=== PATIENT | female | born 1965 | race Caucasian/White ===

== ENCOUNTER 2024-10-22 13:38 | Inpatient (IN) | payer MEDICARE, OTHER, SELFPAY ==
[2024-10-21 20:04] VITALS: BP 188/126
[2024-10-21 20:45] LABS: % Basophils 0.2 % (0-2); % Immature Granulocytes 0.4 % (0-0.5); % Lymphocytes 5.4 % (20.5-51.1); % Monocytes 3.8 % (1.7-9.3); % Neutrophils 90.2 % (42.2-75.2); Absolute Immature Granulocytes 0.1 10^3/uL (0-0.05); Absolute Lymphocytes 0.8 10^3/uL (1.2-3.4); Absolute Monocytes 0.6 10^3/uL (0.1-0.6); Absolute Neutrophils 14.2 10^3/uL (1.4-6.5); Hematocrit 49.8 % (37.0-47.0); Hemoglobin 17.5 g/dL (12.0-16.0); Mean Corp Hgb Conc. 35.1 g/dL (33.0-37.0); Mean Corpuscular Volume 88.1 fL (81.0-99.0); Mean Platelet Volume 8.8 fL (7.4-10.4); Nucleated Red Blood Cells % 0 %; Platelet Count 404 10^3/uL (130-400); Red Blood Cell Count 5.65 10^6/uL (4.20-5.40); Red Cell Dist. Width 14.4 % (11.5-14.5); White Blood Cell Count 15.7 10^3/uL (4.8-10.8)
[2024-10-21 21:00] VITALS: BP 193/124
[2024-10-21 21:03] LABS: ALT (SGPT) 38 U/L (0-35); AST (SGOT) 37 U/L (14-36); Albumin 5.3 g/dl (3.5-5.0); Alkaline Phosphatase 123 U/L (38-126); Blood Urea Nitrogen 38 mg/dl (7-17); Calcium 10.8 mg/dl (8.4-10.2); Carbon Dioxide 19 mmol/L (22-30); Chloride 96 mmol/L (98-107); Glucose 187 mg/dl (70-99); Lipase 61 U/L (23-300); Potassium 3.9 mmol/L (3.5-5.1); Sodium 137 mmol/L (135-145); Total Bilirubin 0.5 mg/dl (0.2-1.3); Total Protein 8.3 g/dl (6.3-8.2); eGFR 31.86
--- NOTE | 2024-10-21 21:09 | ED.GENMED ---
History of Present Illness
General
Chief Complaint: Abdominal Symptoms
Source: patient
Time Seen by Provider: 10/21/24 20:40
History of Present Illness
History of Present Illness:
59-year-old female presents to the emergency room complaining of nausea, vomiting, diarrhea. Symptoms became significant over the past 48 hours. She did have some nausea vomit began about 6 days ago however it was intermittent. No significant
abdominal pain. Patient had a cholecystectomy about a year ago. She denies any dysuria or frequency.
Past History
Past History
ED Past Medical History: HTN; Negative IDDM
ED Past Surgical History: Negative Cardiac
Patient has exhibited threatening behavior?: No
PSI?: No
Social History
Tobacco: Smoker
Alcohol: Occasional
Drug: None
Personal:
Living: with family
Employment: Employed
Family History
Family History: Hypertension
Phy Exam
Physical Exam
Physical Exam:
General: Awake, Alert, Oriented X3. No acute distress.
Vitals: unremarkable
Head: Atraumatic
Eyes: Pupils equal, EOMI
Throat: Airway intact, no exudates, dry mucosa
Neck: Trachea midline
Lungs: Clear and equal b/l
Heart: Regular rate, no murmurs
Abd: Soft, Nontender, No pulsatile mass
Neuro: Nonfocal
Skin: Warm, dry, no rash
Extremities: pulses equal b/l, no edema
Course
Orders/Labs/Results
Orders:
Orders
10/21/24 20:03
Electrocardiogram (*1) Urgent
Reason for Study: Chest Pain
EKG- Treatment ONCE
10/21/24 20:36
Comprehensive Metabolic Panel Urgent
Lipase Urgent
10/21/24 20:37
Complete Blood Count/With Diff Urgent
10/21/24 21:03
0.9% Sodium Chloride 1000 ml [Nss] 1,000 ml IV BOLUS
Ondansetron Injectable [Zofran] 4 mg IV NOW STA
10/21/24 21:07
Hydrocodone 7.5/APAP 325 [[place] 7.5/325] 1 tablet PO NOW STA
10/21/24 23:15
HYDROmorphone [Dilaudid] 1 mg IV NOW STA
10/21/24 23:25
Ondansetron Injectable [Zofran] 4 mg .ROUTE .STK-MED ONE
10/21/24 23:29
Ondansetron Injectable [Zofran] 4 mg IV NOW STA
10/22/24 02:11
Metoclopramide [Reglan] 10 mg IV NOW STA
Abnormal Lab Results
10/21/24 10/21/24
20:36 20:37
WBC 15.7 H 10^3/uL
(4.8-10.8)
RBC 5.65 H 10^6/uL
(4.20-5.40)
Hgb 17.5 H g/dL
(12.0-16.0)
Hct 49.8 H %
(37.0-47.0)
Plt Count 404 H 10^3/uL
(130-400)
Abs Immat Gran (auto) 0.1 H 10^3/uL
(0-0.05)
Absolute Neuts (auto) 14.2 H 10^3/uL
(1.4-6.5)
Absolute Lymphs (auto) 0.8 L 10^3/uL
(1.2-3.4)
Neutrophils % 90.2 H %
(42.2-75.2)
Lymphocytes % 5.4 L %
(20.5-51.1)
Chloride 96 L mmol/L
(98-107)
Carbon Dioxide 19 L mmol/L
(22-30)
BUN 38 H mg/dl
(7-17)
Creatinine 1.8 H mg/dL
(0.6-1.0)
Glucose 187 H mg/dl
(70-99)
Calcium 10.8 H mg/dl
(8.4-10.2)
AST 37 H U/L
(14-36)
ALT 38 H U/L
(0-35)
Total Protein 8.3 H g/dl
(6.3-8.2)
Albumin 5.3 H g/dl
(3.5-5.0)
10/21/24 20:37
10/21/24 20:36
Vital Signs
Initial and Last Documented VS:
Initial Vital Signs
Temp Pulse Resp BP Pulse Ox
97.6 F 130 22 188/126 97
10/21/24 20:04 10/21/24 20:04 10/21/24 20:04 10/21/24 20:04 10/21/24 20:04
Last Documented Vital Signs
Temp Pulse Resp BP Pulse Ox
97.6 F 106 22 120/84 95
10/21/24 20:04 10/22/24 01:30 10/22/24 01:30 10/22/24 01:01 10/22/24 01:30
MDM/Problems Addressed
Differential Diagnosis Includes:
Gastroenteritis, norovirus, opiate withdrawal
MDM/Problems Addressed:
Patient presents with acute nausea vomiting and diarrhea. Patient does use opiates for chronic pain related to her right leg amputation. Patient's been unable to keep these medications down for the past couple days. Patient has not had a fever.
Labs show mild elevation of her white blood cell count which is nonspecific. Hemoglobin is high consistent with volume contraction. Chemistries show elevation of her creatinine above baseline which is 1.4 in 2022. This may also be a chronic
jacket changer time. Patient received a liter of IV fluid. 2 doses Zofran and a dose of IV Dilaudid. Patient had significant improvement in her vital signs remained hypertensive and tachycardic to essentially normal. Patient initially feeling much
better however her nausea vomiting returned. She had further diarrhea. Patient not able to be discharged home. Talk to the hospitalist about admission for hydration and symptom management
*Pulse Oximetry
Patient hypoxic: no
*EKG
Interpretation: abnormal
Heart Rate: 125
Rate: tachycardiac
Rhythm: sinus tachycardia
[place]: normal axis
Interval: normal interval
QRS Pattern: normal QRS
Ischemia: non-specific ST changes
*Finisher Denture Interpretation
Rate: tachycardiac
Interpretation: abnormal
Heart Rate: 125
Rhythm: sinus tachycardia
*Critical Care Note
Total Time (30-74mins, 75-104mins- exclusive of procedures): Not Applicable
Patient Management
Social determinants of health affecting care: Living situation
ED Attending Note
-
Portions of this chart may have been created with voice recognition software.� Occasional wrong word or��sound alike� substitutions may have occurred due to the inherent limitations of voice recognition software.
Discharge Plan
Departure
Patient Disposition: Admit
Date of Disposition: 10/22/24
Time of Disposition: 01:40
Presentation/result/management discussed w/ accepting MD/DO: Hospitalist
Patient with high blood pressure during this ER visit?: No
Condition: Fair
Discharge Problem:
Nausea & vomiting, Opiate withdrawal
Instructions: Nausea and Vomiting, Adult (DC)
Prescriptions:
New
ondansetron 4 mg tablet,disintegrating
4 mg PO Q8H PRN (Reason: nausea and vomiting) Qty: 10 0RF
No Action
lisinopril 10 MG tablet
0.5 tab PO DAILY
hydrochlorothiazide 12.5 MG capsule
0.5 tab PO DAILY
lorazepam 1 MG tablet
1 mg PO HS
ibuprofen 600 MG tablet
600 mg PO Q6H Qty: 30 0RF
Referrals:
Tanner Castillo MD [Family Provider] -
Activity Restrictions/Additional Instructions:
I believe he developed nausea vomiting due to a GI bug which has been prevalent in the area. Because of your nausea and vomiting you are unable to get your pain medicine into your system which then made you more sick. I believe we controlled the
situation now with IV nausea medicine and a dose of IV pain medicine. Your vital signs have normalized and I believe you should be okay to tolerate oral liquids and your pain medication moving forward. Return to the emergency room for any concerns
or inability to tolerate oral intake.
Interventions
Interventions:
*Risk Screen - Suicide Last Done: 10/21/24 20:04
*General Assessment Last Done: 10/21/24 20:33
*Neglect/Abuse Screening Last Done: 10/21/24 20:04
*ED COVID-19 Vaccine History Last Done: 10/21/24 20:33
WL-Zboxlw-Yahdwcdgqg Assessment Last Done: 10/21/24 20:33
Discharge Date and Time
Print Language: TAMAZIGHT
[2024-10-21] MEDS: ZOFRAN 4 MG IV ×2 (21:25→23:29)
[2024-10-21] MEDS: NSS 1000 IV (21:25)
[2024-10-21 22:00] VITALS: BP 181/88
[2024-10-21] MEDS: NORCO 7.5/325 1 TABLET PO (22:05)
[2024-10-21 23:02] VITALS: BP 177/137
[2024-10-21] MEDS: DILAUDID 1 MG IV (23:28)
[2024-10-22] VITALS (8 sets, daily range): BP systolic 104–197; BP diastolic 67–96; BMI 23.7; BMI 21.6
[2024-10-22] MEDS: REGLAN 10 MG IV (02:19)
[2024-10-22] MEDS: NSS 1000 IV (03:23)
--- NOTE | 2024-10-22 03:52 | HPS.HSE ---
Family Physician
-
Family Physician: Tanner Castillo MD
Chief Complaint
-
Nausea vomiting and diarrhea
History of Present Illness
This is a 59-year-old female was a past medical history significant for hypertension, right BKA presenting to the emergency department with 1 day of intractable nausea vomiting and diarrhea.
Patient apparently had symptoms about 1 week ago. It resolved. Then again 1 day ago she started having abdominal discomfort and vomiting followed by profuse diarrhea. Patient reported being on the commode 25 times in the last 24 hours due to
vomiting and diarrhea. She denied having any hematochezia. She denied having any melena. She has mostly watery diarrhea. She is unable to tolerate p.o. due to the symptoms. She would vomited attempted oral medications in the emergency
department. Patient reported that she did take her diltiazem in the morning yesterday. She reported that she has not taking Vicodin in the last 24 hours.
In the ED she was tachycardic to the 110s to 120s, blood pressure was elevated to as high as 200 systolic. She was afebrile. She had a white count of 15,000 and hemoglobin of 17.5. Blood count was normal. Creatinine was 1.8 and a BUN of 38.
Electrolytes were mostly unremarkable. LFTs AST and ALT of 37 both. Otherwise unremarkable. Lipase normal.
Medical History
Past Medical History
Past Medical History: Reports Cancer (breast ca) and HTN
Past Surgical History: Reports Orthopedic (Right BKA) and Other (Left mastectomy)
Social History
Tobacco: Smoker
Alcohol: None
Drug: None
Personal: Single
Living: With Family
Family History
Family History: Not pertinent
Allergies / Home Medications
Allergies reflects when Allergies were last updated in [facility].
Home Medications with original date entered in [facility]
Allergy/Medication List:
Allergies
Allergy/AdvReac Type Severity Reaction Status Date / Time
Penicillins Allergy Unknown Verified 10/21/24 20:03
Home Medications
Vicodin 10/22/24
aspirin 81 mg tablet,delayed release 81 mg PO DAILY 10/22/24
diltiazem HCl 240 mg capsule,extended release 24 hr 240 mg PO DAILY 10/22/24
gabapentin 600 mg tablet 600 mg PO BID 10/22/24
hydrochlorothiazide 25 mg tablet 25 mg PO DAILY 10/22/24
lansoprazole 10/22/24
ondansetron 4 mg disintegrating tablet 4 mg PO Q8H PRN nausea and vomiting #10 tabs 10/22/24
spironolactone 10/22/24
venlafaxine 150 mg tablet,extended release 24 hr 150 mg PO HS 10/22/24
Review of Systems
-
History Source: Patient
Constitutional: Reports No Symptoms
EENT: Reports No Symptoms
Respiratory: Reports No Symptoms
Cardiac: Reports No Symptoms
Abdomen/GI: Reports Abdominal Pain, Nausea, Vomiting and Diarrhea
: Reports No Symptoms
Musculoskeletal: Reports No Symptoms
Skin: Reports No Symptoms
Neurological: Reports No Symptoms
Endocrine: Reports No Symptoms
Hematologic/Lymphatic: Reports No Symptoms
Psych: Reports No Symptoms
Physical Exam
Vital Signs
Vital Signs
Temp Pulse Resp BP Pulse Ox
97.6 F 100 17 120/84 95
10/21/24 20:04 10/22/24 03:01 10/22/24 03:01 10/22/24 01:01 10/22/24 01:30
Physical Exam
General: Well Developed and Well Nourished
HEENT: NormoCephalic, Anicteric and Moist mucous membranes
Respiratory: Clear
Cardiac: S1/S2 and Tachycardia
Breast: Deferred by me
GI: Soft, Non Tender, Non Distended and Normal Bowel Sounds
Rectal: Deferred by Provider
Genito-urinary: Deferred by me
Musculoskeletal: No Clubbing, No Cyanosis and No Edema
Skin: Warm
Neuro: AO x 3 and Nonfocal/grossly intact
Hematologic/Lymphatic: No Lymphadenopathy
Psych: Calm
Laboratory Results
-
10/21/24 20:37
10/21/24 20:36
Laboratory Results
Total Bilirubin 0.5 mg/dl (0.2-1.3) 10/21/24 20:36
AST 37 U/L (14-36) H 10/21/24 20:36
ALT 38 U/L (0-35) H 10/21/24 20:36
Alkaline Phosphatase 123 U/L (38-126) 10/21/24 20:36
Lipase 61 U/L (23-300) 10/21/24 20:36
Data Reviewed
-
Medical Tests (Nuc Med, Echo, EKG etc): Image Personally Visualized and interpreted
Lab Data: Labs Reviewed by me
Old Records: Reviewed
Impression/Plan
-
IMPRESSION:
Patient with approximately 1 day of profuse nausea vomiting and diarrhea, she is tachycardic with sinus tachycardia to 125 on ECG. Labs notable for hemoglobin of 17 concerning for hemoconcentration. Creatinine is up to 1.8 from a baseline of
around 1.1. LFTs unremarkable. Lipase is normal. Abdominal exam is benign. Suspect acute gastroenteritis likely from rotavirus or norovirus. No recent antibiotic use. This picture is likely complicated by some degree of opioid withdrawal.
Patient takes Vicodin 40 mg total in a day and has not had that over 24 hours. She has no prior history of opioid withdrawal and denies any recreational use.
PLAN:
1. Acute gastroenteritis with dehydration
- admit to telemetry
- continue with IV LR at 125 ml/hr for now
- antiemetics
- ppi iv, famotidine
- stool wbc and norovirus
- start immodium prn
- pain control
2. Opioid withdrawal - Mild withdrawal
- bupronorphine 2mg sl x 1
- start prn hydrocodone
- monitor on tele.
3. HTN - suspect 2/2 some withdrawal
- clonidine 0.1 now
- continue diltiazem 240 daily, hold hctz, hold spironolactone
- prn hydralazine
4. ONEYDA - suspect pre renal given history
- holding hctz and spironolactone
- IV fluids
DVT PPX - heparin sq
Code status - full code
[2024-10-22] MEDS: FLUSH (NSS) 1 FLUSH IV (04:26)
[2024-10-22] MEDS: PROTONIX IV 40 MG IV ×2 (04:26→09:18)
[2024-10-22] MEDS: NSS (PRESERVATIVE FREE) 10 ML IV ×2 (04:26→09:19)
[2024-10-22] MEDS: SUBUTEX 2 MG SL (05:01)
[2024-10-22] MEDS: CATAPRES 0.1 MG PO (05:57)
--- NOTE | 2024-10-22 07:25 | W.PN.HOSP.TC ---
Addendum entered and electronically signed by Kandice Moss MD 10/22/24 17:38:
I saw and evaluated the patient independently. I reviewed the resident�s note and agree with findings and plan as documented by Dr. Salvador.
GENERAL: well developed, well nourished, female in no apparent distress
HEENT: NC/AT--no O2 requirements
HEART: regular rate and rhythm, +S1, +S2
LUNGS : clear to auscultation bilaterally
ABDOM: soft, tender RLQ without guarding or rebound, nondistended, hyperactive bowel sounds
EXT: no cyanosis, clubbing, or edema--right BKA
NEUROLOGIC: grossly intact
N/V/diarrhea -- suspect viral gastroenteritis--C. diff neg--norovirus pending--stool studies pending--pt denies any tainted or funny tasting foods--lives alone--no ill contacts--cont IVF, Zofran--clears, advance diet as tolerated--PPI--pain meds
Possible chronic kidney disease versus acute kidney injury with metabolic acidosis--due to dehydration and bicarbonate losses from stool output--cont IVF--agree with holding HCTZ/Aldactone--creat 1.8 to 1.2
Essential Hypertension--cont clonidine, diltiazem as able--hold HCTZ/Aldactone
chronic pain from BKA with opiate use--cont Percocet as able--IV Dilaudid if unable to take orals
DVT proph
code status--FULL CODE
Original Note:
Today's Communication/Plan
-
Patient appears to be improving with IV fluid support and current treatment. We will continue current treatment and monitor the patient. Continue to manage pain. As needed hydralazine for breakthrough hypertension. Continue to trend creatinine
and eGFR.
Assessment / Plan
Assessment / Plan
HPI: Patient is a 59-year-old female with a past medical history of hypertension, right below the knee amputation who presented to the emergency department with 1 day of intractable vomiting and nausea with diarrhea. The patient stated that
symptoms started about 1 week prior to her presentation. It resolved on its own at that time. Then again 1 day prior to her presentation she started having abdominal discomfort again with vomiting and diarrhea. The patient reported being on the
commode 25 times in the last 24 hours due to vomiting and diarrhea. She denied having any hematochezia or any melena. She stated she was mostly having watery diarrhea. She was unable to tolerate any oral intake due to the symptoms. Any oral
medications given to her in the emergency department were vomited. The patient reported that she did take her diltiazem prior to her presentation to the emergency department. In the emergency department she was tachycardic with a heart rate to the
110s to 120s, blood pressure was elevated to as high as 200 systolic. She was afebrile. She had a white blood cell count of 15,000 and hemoglobin of 17.5. Blood count was normal. BUN was 38 and creatinine was 1.8. AST and ALT were both 37 and
lipase was normal. The patient was admitted to [facility] for acute gastroenteritis with dehydration.
Assessment/Plan:
-Acute gastritis with dehydration:
IV fluid support given
Continue antiemetic Zofran
PPI support with pantoprazole IV
Obtain stool cultures
Imodium as needed
Pain control with Dilaudid
-Possible chronic kidney disease versus acute kidney injury:
Patient's EGFR was 31.86 on 08/20/2025 and was 51.82 on 10/22/2024. We will continue to trend EGFR
Patient's creatinine on 03/27/2023 was 1.1, on 10/21/2024 it was 1.8, on 10/22/2024 it was 1.2�we will continue to trend creatinine
Holding hydrochlorothiazide and spironolactone
IV fluid support
-Hypertension:
The patient was given 0.1 of clonidine
Continuing diltiazem, holding hydrochlorothiazide and spironolactone
As needed hydralazine for breakthrough hypertension
Anticipated Discharge: 24 - 48 hours
Subjective/Interval History
-
Met with patient at the bedside. Her stomach continues to be upset but her pain had significantly improved. She wanted to attempt eating more food and decided that she would like to try to stick to clears but then at her own pace try small solid
foods. Her diet has been advanced with this understanding.
Objective Data
-
Labs:
Labs
10/22/24 12:52
10/22/24 12:52
Vital Signs:
Vital Signs
Temp Pulse Resp BP Pulse Ox
97.6 F 119 30 197/96 95
10/21/24 20:04 10/22/24 04:30 10/22/24 04:30 10/22/24 04:29 10/22/24 01:30
Review of Systems
-
History Source: Patient
Constitutional: Reports No Symptoms
EENT: Reports No Symptoms Reported
Respiratory: Reports No Symptoms
Cardiac: Reports No Symptoms
Abdomen/GI: Reports Abdominal Pain, Nausea and Vomiting
Breast: Reports No Symptoms
Genitourinary: Reports No Symptoms
Musculoskeletal: Reports No Symptoms
Skin: Reports No Symptoms
Neuro: Reports Weakness
Endocrine: Reports No Symptoms
Hematologic / Lymphatic: Reports No Symptoms
Allergy / Immunology: Reports No Symptoms
Physical Exam
-
General: Well Developed, Well Nourished and Pain
HEENT: Normocephalic, Atraumatic and Moist Mucous Membranes
Respiratory: Clear to Auscultation
Cardiac: Regular Rhythm and S1/S2; Negative JVD
Breast: Deferred by me
GI: Nondistended, Normal Bowel Sounds and Tender
Genito-urinary: Deferred by me
Musculoskeletal: Other (Below the knee amputation of the right side)
Skin: Warm and Dry
Neuro: Awake, Alert and Oriented
Psych: Calm and Intact Judgement/Insight
[2024-10-22] MEDS: ZOFRAN 4 MG IV ×3 (08:14→21:38)
[2024-10-22] MEDS: LR 1000 IV ×3 (09:14→23:56)
[2024-10-22] MEDS: HEPARIN 5000 UNITS SC ×3 (09:18→23:59)
[2024-10-22] MEDS: ASPIR LOW (ENTERIC COATED) 81 MG PO (09:18)
[2024-10-22] MEDS: CARDIZEM CD 240 MG PO (09:19)
[2024-10-22] MEDS: NEURONTIN 600 MG PO ×2 (09:19→21:50)
[2024-10-22] MEDS: DILAUDID 0.5 MG IV ×3 (10:52→21:32)
[2024-10-22 13:17] LABS: Blood Urea Nitrogen 28 mg/dl (7-17); Calcium 9.3 mg/dl (8.4-10.2); Carbon Dioxide 30 mmol/L (22-30); Chloride 98 mmol/L (98-107); Estimated Creatinine Clearance 36 ml/min; Glucose 101 mg/dl (70-99); Potassium 4.2 mmol/L (3.5-5.1); Sodium 136 mmol/L (135-145); eGFR 51.82
[2024-10-22 13:22] LABS: Hematocrit 40.5 % (37.0-47.0); Hemoglobin 13.8 g/dL (12.0-16.0); Mean Corp Hgb Conc. 34.1 g/dL (33.0-37.0); Mean Corpuscular Hgb 31.2 pg (27.0-31.0); Mean Corpuscular Volume 91.4 fL (81.0-99.0); Mean Platelet Volume 8.9 fL (7.4-10.4); Platelet Count 269 10^3/uL (130-400); Red Blood Cell Count 4.43 10^6/uL (4.20-5.40); Red Cell Dist. Width 14.5 % (11.5-14.5); White Blood Cell Count 9.5 10^3/uL (4.8-10.8)
--- NOTE | 2024-10-22 15:15 | PTCARENOTE ---
Received pt from ED via stretcher. Pt ambulated to bed with standby assist and RW. AAOx3. Pt c/o 04/17 pain throughout right stump, see MAR. Assessed and oriented to room. Pt verbalized understanding of call estes. Misha estes within close reach. Will
cont to monitor.
[2024-10-22] MEDS: LR IV (16:57)
--- NOTE | 2024-10-22 18:09 | PTCARENOTE ---
Pt c/o unrelieved nausea. MD made aware, no new order provided.
--- NOTE | 2024-10-22 18:40 | PTCARENOTE ---
Pt c/o acid reflux, made aware, new order provided, see MAR.
[2024-10-22] MEDS: PEPCID 20 MG PO (18:42)
[2024-10-22] MEDS: FLUSH (NSS) 3 FLUSH IV (21:39)
[2024-10-22] MEDS: EFFEXOR XR 150 MG PO (21:50)
[2024-10-22] MEDS: DESYREL 150 MG PO (23:57)
[2024-10-23 03:42] VITALS: BP 157/96
[2024-10-23 07:00] VITALS: BP 121/68
[2024-10-23] MEDS: LR 1000 IV (07:13)
[2024-10-23 08:30] LABS: Hematocrit 37.2 % (37.0-47.0); Hemoglobin 12.5 g/dL (12.0-16.0); Mean Corp Hgb Conc. 33.6 g/dL (33.0-37.0); Mean Corpuscular Hgb 31.1 pg (27.0-31.0); Mean Corpuscular Volume 92.5 fL (81.0-99.0); Mean Platelet Volume 9.2 fL (7.4-10.4); Platelet Count 265 10^3/uL (130-400); Red Blood Cell Count 4.02 10^6/uL (4.20-5.40); Red Cell Dist. Width 14.3 % (11.5-14.5)
[2024-10-23] MEDS: ASPIR LOW (ENTERIC COATED) 81 MG PO (08:46)
[2024-10-23] MEDS: NEURONTIN 600 MG PO ×2 (08:46→21:12)
[2024-10-23] MEDS: HEPARIN 5000 UNITS SC ×2 (08:46→16:24)
[2024-10-23] MEDS: VITAMIN B-12 1000 MCG PO (08:46)
[2024-10-23] MEDS: CARDIZEM CD 240 MG PO (08:46)
[2024-10-23] MEDS: NSS (PRESERVATIVE FREE) 10 ML IV (08:46)
[2024-10-23] MEDS: PROTONIX IV 40 MG IV (08:46)
[2024-10-23] MEDS: VITAMIN D3 (cholecalciferol) 25 MCG PO (08:46)
[2024-10-23] MEDS: DILAUDID 0.5 MG IV ×4 (08:52→22:26)
[2024-10-23] MEDS: ZOFRAN 4 MG IV ×3 (08:52→22:26)
[2024-10-23 09:05] LABS: ALT (SGPT) 29 U/L (0-35); AST (SGOT) 27 U/L (14-36); Albumin 3.2 g/dl (3.5-5.0); Alkaline Phosphatase 89 U/L (38-126); Blood Urea Nitrogen 12 mg/dl (7-17); Carbon Dioxide 30 mmol/L (22-30); Chloride 104 mmol/L (98-107); Estimated Creatinine Clearance 54 ml/min; Glucose 99 mg/dl (70-99); Magnesium 1.8 mg/dl (1.6-2.3); Phosphorus 2.8 mg/dl (2.5-4.5); Potassium 3.8 mmol/L (3.5-5.1); Sodium 138 mmol/L (135-145); Total Bilirubin 0.3 mg/dl (0.2-1.3); Total Protein 5.4 g/dl (6.3-8.2); eGFR > 60.00
[2024-10-23 11:00] VITALS: BP 151/77
--- NOTE | 2024-10-23 11:32 | W.PN.HOSP.TC ---
Today's Communication/Plan
-
likely home tomorrow
Assessment / Plan
Assessment / Plan
Pt is a 59 year old female
Norovirus positive --C. diff neg--norovirus pending---lives alone--no ill contacts--stop IVF, Zofran--diet as tolerated--PPI--pain meds
acute kidney injury with metabolic acidosis--due to dehydration and bicarbonate losses from stool output--creat now at baseline 0.8--stop IVF--agree with holding HCTZ/Aldactone for now
Essential Hypertension--cont clonidine, diltiazem as able--hold HCTZ/Aldactone
chronic pain from BKA with opiate use--cont Percocet as able--IV Dilaudid if unable to take orals
DVT proph
code status--FULL CODE
Anticipated Discharge: Within 24 hours
Subjective/Interval History
-
Date of Service: October 23, 2024
pt feeling better
Objective Data
-
Labs:
Laboratory Results
10/23/24
07:52
WBC 7.0
Hgb 12.5
Hct 37.2
Plt Count 265
Sodium 138
Potassium 3.8
Chloride 104
Carbon Dioxide 30
BUN 12
Creatinine 0.8
Glucose 99
Calcium 9.0
Total Bilirubin 0.3
AST 27
ALT 29
Alkaline Phosphatase 89
Vital Signs:
max temp for 24 hours
10/23/24
03:42
Temp 99.1 F
Vital Signs
Temp Pulse Resp BP Pulse Ox
97.8 F 70 16 121/68 97
10/23/24 07:00 10/23/24 08:46 10/23/24 07:00 10/23/24 08:46 10/23/24 07:00
I&O
10/22/24 10/23/24 10/24/24
06:59 06:59 06:59
Intake Total 2760 / 2760 535 / 535
Balance 2760 / 276 535 / 535
Review of Systems
-
All other systems: Reviewed and negative
Physical Exam
-
General: Well Developed, Well Nourished and No Apparent Distress
HEENT: Normocephalic and Atraumatic
Respiratory: Clear to Auscultation; Negative Wheezes, Rhonchi or Crackles
Cardiac: Regular Rhythm and S1/S2; Negative Murmur
GI: Soft, Nontender, Nondistended and Normal Bowel Sounds
Musculoskeletal: No Clubbing, No Cyanosis and No Edema
Neuro: Awake
Psych: Calm
[2024-10-23 15:00] VITALS: BP 113/60
[2024-10-23] MEDS: NORCO 7.5/325 1 TABLET PO ×2 (16:35→21:51)
--- NOTE | 2024-10-23 17:06 | CM ---
Alert awake oriented patient who lives alone in an apartment with 0 steps to eneter. She is independent in driving and in all activities of daily living.She has used a wheelchair walker .She has a prophesies right leg.
VN [facility] hx
No SNF hx
Pharmacy [facility]
PCP Dr Castillo
PLAN Home offer VN
[2024-10-23] MEDS: EFFEXOR XR 150 MG PO (21:12)
[2024-10-23 23:30] VITALS: BP 108/58
[2024-10-24] MEDS: HEPARIN 5000 UNITS SC ×2 (00:08→07:26)
[2024-10-24] MEDS: DILAUDID 0.5 MG IV ×2 (06:19→11:03)
[2024-10-24] MEDS: ZOFRAN 4 MG IV (06:19)
[2024-10-24 07:23] LABS: Hematocrit 35.2 % (37.0-47.0); Hemoglobin 11.9 g/dL (12.0-16.0); Mean Corp Hgb Conc. 33.8 g/dL (33.0-37.0); Mean Corpuscular Volume 91.7 fL (81.0-99.0); Mean Platelet Volume 9.8 fL (7.4-10.4); Platelet Count 261 10^3/uL (130-400); Red Blood Cell Count 3.84 10^6/uL (4.20-5.40); White Blood Cell Count 5.7 10^3/uL (4.8-10.8)
[2024-10-24] MEDS: NEURONTIN 600 MG PO (07:26)
[2024-10-24] MEDS: ASPIR LOW (ENTERIC COATED) 81 MG PO (07:26)
[2024-10-24] MEDS: PROTONIX IV 40 MG IV (07:26)
[2024-10-24] MEDS: VITAMIN B-12 1000 MCG PO (07:26)
[2024-10-24] MEDS: VITAMIN D3 (cholecalciferol) 25 MCG PO (07:26)
[2024-10-24] MEDS: NSS (PRESERVATIVE FREE) 10 ML IV (07:26)
[2024-10-24] MEDS: CARDIZEM CD 240 MG PO (07:27)
[2024-10-24 07:32] LABS: Blood Urea Nitrogen 10 mg/dl (7-17); Calcium 9.2 mg/dl (8.4-10.2); Carbon Dioxide 28 mmol/L (22-30); Chloride 102 mmol/L (98-107); Estimated Creatinine Clearance 54 ml/min; Glucose 88 mg/dl (70-99); Magnesium 1.9 mg/dl (1.6-2.3); Potassium 3.7 mmol/L (3.5-5.1); Sodium 138 mmol/L (135-145); eGFR > 60.00
[2024-10-24 07:42] VITALS: BP 140/74
--- NOTE | 2024-10-24 13:43 | W.PN.HOSP.TC ---
Addendum entered and electronically signed by Michael Spann MD 10/26/24 10:17:
Sepsis, POA, due to acute Norovirus infection
Original Note:
Today's Communication/Plan
-
d/c
Assessment / Plan
Assessment / Plan
Gen: NAD, AAOx3.
Eyes: EOMI, PERRLA, no scleral icterus.
Neck: supple.
CV: RRR, +S1/S2, no m/r/g.
Resp: CTAB, no rales, wheezes, or rhonchi.
Abd: +BS, soft, NT, ND
Skin: No rashes.
Neuro: CN 2-12 intact, non-focal.
Psych: Normal mood and affect.
ONEYDA with AG metabolic acidosis due to diarrhea due to acute norovirus infection:
-ONEYDA resolved with IVFs
-zofran PRN
-supportive care
-diet as tolerated
-holding home HCTZ/Aldactone
Other problems:
Essential Hypertension: cont diltiazem. Home HCTZ/Aldactone on hold
Chronic pain from BKA with chronic opioid use with dependence: [place] PRN
FULL/Heparin
Medically cleared for d/c.
Total time spent on d/c = 31 min. This included today's physical exam, progress note, review of laboratory and diagnostic data, preparation of discharge documents and prescriptions, and discussions about the pt's hospital course and discharge plan
with the patient and other medical technologist blood bank involved in the patient's care.
Anticipated Discharge: Today
Subjective/Interval History
-
Date of Service: October 24, 2024
c/o indigestion. No diarrhea today.
Objective Data
-
Labs:
Laboratory Results
10/24/24
05:59
WBC 5.7
Hgb 11.9 L
Hct 35.2 L
Plt Count 261
Sodium 138
Potassium 3.7
Chloride 102
Carbon Dioxide 28
BUN 10
Creatinine 0.8
Glucose 88
Calcium 9.2
Vital Signs:
Vital Signs
Temp Pulse Resp BP Pulse Ox
97.9 F 63 15 140/74 97
10/24/24 07:42 10/24/24 07:42 10/24/24 07:42 10/24/24 07:42 10/24/24 07:42
I&O
10/23/24 10/24/24 10/25/24
06:59 06:59 06:59
Intake Total 2760 / 2760 1570 / 1570
Balance 2760 / 2760 1570 / 1570
[2024-10-24] MEDS: NORCO 7.5/325 1 TABLET PO (13:49)
[2024-10-24] MEDS: MAALOX 30 ML PO (14:02)
--- NOTE | 2024-10-24 14:40 | CM ---
MD entered order for discharge.
Spoke with pt she said she was ready for discharge.
Offered Vn she declined need.
She will call her dgt about dc.
Girlfriend Matilde will driv ehr home.
PLAn Home no needs
[2024-10-24 16:05] VITALS: BP 151/80
--- NOTE | 2024-10-25 12:18 | W.DCSUMMARY ---
Addendum entered and electronically signed by Alcides Salvador MD, Resident 10/26/24 14:26:
CORRECTION: Date of Discharge 10/24/24
Original Note:
Discharge Summary
Discharge Data
Date of Admission: 10/22/24
Date of Discharge: 10/25/24
-
Pending Results: No
Hospital Course
Patient is a 59-year-old female with a past medical history of hypertension, right below the knee amputation who presented to the emergency department with 1 day of intractable vomiting and nausea with diarrhea. The patient stated that symptoms
started about 1 week prior to her presentation. It resolved on its own at that time. Then again 1 day prior to her presentation she started having abdominal discomfort again with vomiting and diarrhea. The patient reported being on the commode 25
times in the last 24 hours due to vomiting and diarrhea. She denied having any hematochezia or any melena. She stated she was mostly having watery diarrhea. She was unable to tolerate any oral intake due to the symptoms. Any oral medications
given to her in the emergency department were vomited. The patient reported that she did take her diltiazem prior to her presentation to the emergency department. In the emergency department she was tachycardic with a heart rate to the 110s to
120s, blood pressure was elevated to as high as 200 systolic. She was afebrile. She had a white blood cell count of 15,000 and hemoglobin of 17.5. Blood count was normal. BUN was 38 and creatinine was 1.8. AST and ALT were both 37 and lipase
was normal. The patient was admitted to [facility] for acute gastroenteritis with dehydration.
On admission the patient was given IV fluid support. Antiemetic Zofran was given due to ongoing nausea. Stress ulcer prophylaxis was pantoprazole IV. Stool cultures were positive for norovirus, negative for C. difficile. Lab work determined that
the patient was suffering from acute kidney injury with metabolic acidosis due to dehydration and bicarbonate losses from stool output. IV fluid support was stopped after creatinine normalized to the baseline of 0.8. Hydrochlorothiazide/Aldactone
was held. The patient condition continued to improve with IV fluid support and her ONEYDA resolved. Patient is medically stable and appropriate for discharge. The patient believes that she is ready to go home.
The patient has reached maximal benefit from this hospital admission and is appropriate for discharge at the present time. There are no medical barriers that would impede the patient from being safely discharged. The patient should follow-up with
her primary care provider within 1 week following discharge.
Discharge Plan
-
Patient Disposition: Home (Routine Discharge)
Discharge Diagnosis/Procedures: Norovirus positive, acute kidney injury with metabolic acidosis, Essential Hypertension, chronic pain from BKA with opiate use
Condition: Good
Diet: As tolerated
Activity: As tolerated
Driving Restrictions: As prior to admission
Bathing Restrictions: None
Referrals:
Tanner Castillo MD [Family Provider] - in less than 1 week
Prescriptions:
Continued
gabapentin 600 mg Tablet
600 mg PO BID
diltiazem HCl 240 mg Capsule,Extended Release 24hr
240 mg PO DAILY
hydrocodone-acetaminophen 10-325 mg Tablet
1 tab PO Q4HPRN PRN (Reason: severe pains)
aspirin 81 mg Tablet,Delayed Release (Dr/Ec)
81 mg PO DAILY
lansoprazole 15 mg Capsule,Delayed Release(Dr/Ec)
15 mg PO HS
venlafaxine 150 mg Tablet Extended Release 24hr
150 mg PO HS
sumatriptan succinate [Imitrex] 50 mg Tablet
0 mg PO .COMPLEX
Rx Instructions:
take 1 tab at onset of headache; if no relief may repeat 1 tab after at least 2 hrs; max = 4 tabs/24 hr
cyanocobalamin (vitamin B-12) 1,000 mcg Tablet
1,000 mcg PO DAILY
trazodone 150 mg Tablet
150 mg PO HSPRN PRN (Reason: sleep)
cholecalciferol (vitamin D3) [Vitamin D3] 25 mcg (1,000 unit) Tablet
25 mcg PO DAILY
omega 2-lnz-ehj-fish oil [Fish Oil] 1,000 (120-180) mg Capsule
1 cap PO DAILY
Repatha SureClick 140 mg/mL Pen Injector
140 mg SC Q2W
Discontinued
spironolactone 25 mg Tablet
25 mg PO DAILY
hydrochlorothiazide 25 mg Tablet
25 mg PO DAILY
Discharge Orders:
Discharge Patient (As Directed); Ordered 10/24/24
Ordered By: Michael Spann
Discharge Date and Time
Discharge Date/Time: 10/24/24 16:36
Print Language: SETSWANA
[2024-10-25 19:14] LABS: Hepatitis C Antibody Negative (Negative)
--- NOTE | 2024-10-26 08:47 | PN.CDI ---
CDI
- -
CDI:
Physician Documentation Request
Admit Date: 10/22/24 13:38
Dear Doctor [place],
Clinical Indicators:
Patient admitted with Norovirus and ONEYDA.
WBC on admission:
10/21/24
20:37
WBC 15.7 H
HR/RR trend on admission:
10/21/24
20:04 10/21/24
20:37 10/21/24
21:30
Pulse 130 123 110
Resp Rate 22 23 27
10/21/24
22:00 10/21/24
22:30 10/21/24
23:00
Pulse 109 111 137
Resp Rate 30 26 26
Please clarify which of the following most accurately describes the status of the patient's infection:
Sepsis, POA
- Systemic manifestations of infection, with 2 or more SIRS criteria which include:
- Fever >100.4 degrees F or hypothermia < 96.8 degrees F
- Leukocytosis - WBC > 12,000 or leukopenia - WBC < 4,000 or > 10% bands
- Tachycardia > 90 beats per minute
- Tachypnea - RR > 20 breaths per minute or PaCO2 , 32mmHg
Source: [employer] Manual 2013
Severe Sepsis with associated ONEYDA, POA
- Sepsis with associated acute organ dysfunction
- Documentation should indicate the association between the sepsis and the organ dysfunction
Norovirus Only, Without Systemic Illness
Other
Use of terms such as suspected, likely, concern for, or probable (associated with a specific diagnosis that is being evaluated, monitored, or treated as if it exists) are acceptable and can be coded in the inpatient setting, when documented at the
time of discharge.
Thank you,
Lisa Phillips RN BSN
CDI Specialist
available via tiger text
Please use your independent medical judgment in providing your response.
== END 2024-10-24 16:36 | disposition home or self-care (01) | DRG 872 ==
LOC: 3 WEST ACU 13:38
PROVIDERS: Emergency Medicine; Internal Medicine; ADMITTING PHYSICIAN Internal Medicine; ATTENDING PHYSICIAN Internal Medicine; EMERGENCY PHYSICIAN Emergency Medicine; FAMILY PHYSICIAN Family Medicine
DX: A41.9 Sepsis, unspecified organism (principal); A08.11 Acute gastroenteropathy due to Norwalk agent; N17.9 Acute kidney failure, unspecified; E87.20 Acidosis, unspecified; F11.23 Opioid dependence with withdrawal; G89.29 Other chronic pain; Z89.511 Acquired absence of right leg below knee; I10 Essential (primary) hypertension; E86.0 Dehydration; F17.200 Nicotine dependence, unspecified, uncomplicated; Z88.0 Allergy status to penicillin; Z79.82 Long term (current) use of aspirin; Z90.12 Acquired absence of left breast and nipple; Z85.3 Personal history of malignant neoplasm of breast
CPT/HCPCS: 80048; 80053; 83690; 83735; 84100; 85025; 85027; 86803; 87045; 87046; 87077; 87324; 87427; 87449; 87798; 89055; 93005; 96361; 96374; 96375; 96376; 99285